=== PATIENT | female | born 1940 | race Caucasian/White ===

== ENCOUNTER → 2024-01-10 08:11 | Outpatient (REF) | payer OTHER, SELFPAY | LOC: HWRCS 08:11 | PROVIDERS: ATTENDING PHYSICIAN Internal Medicine Cardiovascular Disease; FAMILY PHYSICIAN Family Medicine | DX: I10 Essential (primary) hypertension (principal); R94.31 Abnormal electrocardiogram [ECG] [EKG]; E78.5 Hyperlipidemia, unspecified | CPT/HCPCS: 93306 ==

== ENCOUNTER → 2024-03-21 07:55 | Outpatient (REF) | payer OTHER, SELFPAY | LOC: HWWDC 07:55 | PROVIDERS: ATTENDING PHYSICIAN Family Medicine | DX: Z12.31 Encounter for screening mammogram for malignant neoplasm of breast (principal) | CPT/HCPCS: 77063; 77067 ==

== ENCOUNTER 2024-08-08 14:28 | Emergency (ER) | payer OTHER, SELFPAY ==
[2024-08-08 14:31] VITALS: BP 173/94
--- NOTE | 2024-08-08 15:02 | ED.GENMED ---
History of Present Illness
General
Chief Complaint: Fall
Source: patient
Time Seen by Provider: 08/08/24 14:54
History of Present Illness
History of Present Illness:
83-year-old female with past medical history of hypertension hypercholesterolemia presenting to the ER via ambulance after she tripped and fell in the parking lot at the [employer] landing face first onto the ground sustaining abrasion to the
nose and upper lip. Patient denies any loss of consciousness, headaches, vomiting, visual changes, extremity related pain or any other concerns. She denies use of anticoagulant medications. Unknown last tetanus. No other injuries sustained.
Past History
Past History
ED Past Medical History: HTN and Hypercholesterolemia
ED Past Surgical History: Cholecystectomy
Social History
Tobacco: Non-smoker
Alcohol: Daily (wine 1 glass)
Drug: None
Personal:
Living: with family
Review of Systems
Review of Systems
All Other Systems: ROS reviewed and negative except as documented in HPI and ROS
Phy Exam
Physical Exam
Physical Exam:
GENERAL: Alert , in no apparent distress
EYE: conjunctiva clear
Head: Calvarium is without any sign of trauma
NECK: Supple,
ENT: mmm. Dental fractures. There is abrasion to the proximalmost portion of the nose, just distal to this there is a superficial 5 mm more centrally oriented laceration with mild oozing but no active bleeding. Upper lip just lateral to the
frenulum has small superficial abrasion. Does not cross the vermil[place] border
LUNGS: no acute respiratory distress
NEUROLOGICAL: Alert and oriented
SKIN: Warm and dry, no other areas of abrasion/laceration
MUSCULOSKELETAL: well perfused.
PSYCH: Normal and appropriate interaction.
Scores
Heart Failure Risk
Heart Failure Risk Score: Not Applicable
Heart Score for Chest Pain Patients
STEMI patient?: Not applicable
Withdrawal Assessment of Alcohol
Withdrawal Assessment Completed?: Not applicable
Course
Orders/Labs/Results
Orders:
Orders
08/08/24 15:03
Tetanus/Diphth/Acelpertussis [Adacel] 0.5 ml IM .ONCE ONE
Vital Signs
Initial and Last Documented VS:
Initial Vital Signs
Temp Pulse Resp BP Pulse Ox
98.8 F 103 16 173/94 96
08/08/24 14:31 08/08/24 14:31 08/08/24 14:31 08/08/24 14:31 08/08/24 14:31
Last Documented Vital Signs
Temp Pulse Resp BP Pulse Ox
98.8 F 100 18 165/90 96
08/08/24 14:31 08/08/24 15:16 08/08/24 15:16 08/08/24 15:16 08/08/24 15:16
Procedures
Laceration Closure
Upper Nose:
Status of Wound: clean
Size of Wound in cm: 0.5
Description of Wound Edges: sharp
Preparation: cleaned with saline
Type of Closure: Dermabond-skin glue
MDM/Problems Addressed
Differential Diagnosis Includes:
abrasions/laceration, facial fracture, ICH, calvarial fracture, dental fracture
MDM/Problems Addressed:
83-year-old female presenting to the ER for evaluation after an accidental trip and fall resulting in minor facial injuries. Laceration of the nose was closed with Dermabond without any difficulty. I had extensive conversation with patient and son
about CT imaging and at this time patient does not wish to proceed with any imaging and feels comfortable being discharged home. We discussed neurologic return precautions and family/patient are in agreement with this. Patient advised on wound
care. Stable for discharge and aware of return precautions to the ER.
*Pulse Oximetry
Patient hypoxic: no
*Critical Care Note
Total Time (30-74mins, 75-104mins- exclusive of procedures): Not Applicable
ED Attending Note
-
Portions of this chart may have been created with voice recognition software.� Occasional wrong word or��sound alike� substitutions may have occurred due to the inherent limitations of voice recognition software.
Discharge Plan
Departure
Patient Disposition: Home (Routine Discharge)
Date of Disposition: 08/08/24
Time of Disposition: 15:02
Patient with high blood pressure during this ER visit?: Yes
Discharge Problem:
Accidental fall, Laceration of nose, Laceration of lip
Instructions: Laceration Repair With Glue (DC), Wound Care (DC)
Prescriptions:
No Action
lisinopril 10 MG tablet
10 mg PO Daily Qty: 15 0RF
Interventions
Interventions:
*Risk Screen - Suicide Last Done: 08/08/24 14:31
*General Assessment Last Done: 08/08/24 15:16
*Neglect/Abuse Screening Last Done: 08/08/24 14:31
*ED COVID-19 Vaccine History Last Done: 08/08/24 15:03
*Nursing Disposition Last Done: 08/08/24 15:16
ED-Musculoskeletal Assessment Last Done: 08/08/24 15:03
ED- Neurological Assessment Last Done: 08/08/24 15:03
ED-Skin Assessment Last Done: 08/08/24 15:03
Discharge Date and Time
Discharge Date/Time: 08/08/24 15:19
Print Language: ITALIAN
[2024-08-08] MEDS: ADACEL 0.5 ML IM (15:08)
[2024-08-08 15:16] VITALS: BP 165/90
== END 2024-08-08 15:19 | disposition home or self-care (01) ==
LOC: EMR 14:28
PROVIDERS: EMERGENCY PHYSICIAN Emergency Medicine; FAMILY PHYSICIAN Family Medicine
DX: S01.21XA Laceration without foreign body of nose, initial encounter (principal); S01.511A Laceration without foreign body of lip, initial encounter; W01.0XXA Fall on same level from slipping, tripping and stumbling without subsequent striking against object, initial encounter; I10 Essential (primary) hypertension; E78.00 Pure hypercholesterolemia, unspecified; Z23 Encounter for immunization
CPT/HCPCS: 99282; 12011; 90471; 90715

== ENCOUNTER → 2024-12-10 08:52 | Outpatient (REF) | payer OTHER, SELFPAY | LOC: HWRAD 08:52 | PROVIDERS: ATTENDING PHYSICIAN Family Medicine | DX: Z78.0 Asymptomatic menopausal state (principal) | CPT/HCPCS: 77080 ==

== ENCOUNTER → 2025-03-26 08:03 | Outpatient (REF) | payer OTHER, SELFPAY | LOC: HWWDC 08:03 | PROVIDERS: ATTENDING PHYSICIAN Family Medicine | DX: Z12.31 Encounter for screening mammogram for malignant neoplasm of breast (principal) | CPT/HCPCS: 77063; 77067 ==